=== PATIENT | female | born 1970 | race Caucasian/White ===

== ENCOUNTER 2024-07-08 07:44 | Day surgery (SDC) | payer MEDICAID ==
[2024-07-08] VITALS (12 sets, daily range): BP systolic 114–137; BP diastolic 74–83; PULSE 61–71; RESP 10–14; O2SAT 95–99
[~2024-07-08] VITALS: Ht 162.6 cm; Wt 63.4 kg
[~2024-07-08 07:44] MED LIST: ASPI-1265 PO; BUPR100T5 PO; CHOL100025 PO; HYDR12.55 PO; LOSA-415 PO; METF-438 PO; UPAD30TA
[2024-07-08] MEDS ORDERED: LIDOcaine 2% Viscous 15ml cup ONE (09:59)
[2024-07-08] MEDS ORDERED: fentaNYL/PF 50MCG/1 ML 2ML syringe ONE (09:59)
[2024-07-08] MEDS ORDERED: MIDAZolam 1 MG/ML 5ML VIAL ONE (09:59)
[2024-07-08] MEDS ORDERED: diphenhydrAMINE 50 mg/ml inj ONE (10:00)
== END 2024-07-08 11:25 | disposition home or self-care (01) ==
LOC: PRE-OP 07:44
PROVIDERS: ATTEND Internal Medicine Gastroenterology
DX: K30 Functional dyspepsia (principal); R11.2 Nausea with vomiting, unspecified; K31.89 Other diseases of stomach and duodenum; K29.50 Unspecified chronic gastritis without bleeding
CPT/HCPCS: 43239; J2250; J3010; J7030; Z7512; 99152; A4620; J1200